=== PATIENT | female | born 1950 | race Caucasian/White ===

== ENCOUNTER → 2023-07-31 10:07 | Outpatient (REF) | payer MEDICARE, SELFPAY ==
[2023-07-31 13:18] LABS: ALT (SGPT) 61 U/L (0-35); AST (SGOT) 68 U/L (14-36); Albumin 3.8 g/dl (3.5-5.0); Alkaline Phosphatase 155 U/L (38-126); Blood Urea Nitrogen 25 mg/dl (7-17); Calcium 11.1 mg/dl (8.4-10.2); Carbon Dioxide 29 mmol/L (22-30); Chloride 104 mmol/L (98-107); Glucose 197 mg/dl (70-99); HDL Cholesterol 60 mg/dl; LDL Cholesterol, Calculated 76 mg/dl; Potassium 4.6 mmol/L (3.5-5.1); Sodium 138 mmol/L (135-145); Total Bilirubin 0.5 mg/dl (0.2-1.3); Total Cholesterol 162 mg/dl (50-199); Total Protein 6.7 g/dl (6.3-8.2); Triglyceride 134 mg/dl (10-149); Very Low Density Lipoprotein 26 mg/dl (0-30); eGFR 53.72
[2023-07-31 14:37] LABS: Glycohemoglobin (HgbA1c) 7.9 % (4.0-5.6)
== END ==
LOC: HWLAB 10:07
PROVIDERS: ATTENDING PHYSICIAN Internal Medicine Endocrinology, Diabetes & Metabolism; FAMILY PHYSICIAN Internal Medicine
DX: E78.5 Hyperlipidemia, unspecified (principal); E11.9 Type 2 diabetes mellitus without complications
CPT/HCPCS: 36415; 80053; 80061; 83036

== ENCOUNTER → 2023-09-05 10:52 | Outpatient (REF) | payer MEDICARE, SELFPAY | LOC: WDC 10:52 | PROVIDERS: ATTENDING PHYSICIAN Internal Medicine | DX: Z12.31 Encounter for screening mammogram for malignant neoplasm of breast (principal) | CPT/HCPCS: 77063; 77067 ==

== ENCOUNTER → 2023-11-13 10:07 | Outpatient (REF) | payer MEDICARE, SELFPAY | LOC: HWRCS 10:07 | PROVIDERS: ATTENDING PHYSICIAN Nurse Practitioner Gerontology; FAMILY PHYSICIAN Internal Medicine | DX: I25.10 Atherosclerotic heart disease of native coronary artery without angina pectoris (principal); I77.810 Thoracic aortic ectasia | CPT/HCPCS: 93306 ==

== ENCOUNTER → 2024-01-23 09:19 | Outpatient (REF) | payer MEDICARE, SELFPAY ==
[2024-01-23 12:21] LABS: ALT (SGPT) 34 U/L (0-35); AST (SGOT) 40 U/L (14-36); Albumin 3.6 g/dl (3.5-5.0); Alkaline Phosphatase 103 U/L (38-126); Blood Urea Nitrogen 28 mg/dl (7-17); Calcium 11.2 mg/dl (8.4-10.2); Carbon Dioxide 36 mmol/L (22-30); Chloride 99 mmol/L (98-107); Glucose 154 mg/dl (70-99); HDL Cholesterol 60 mg/dl; LDL Cholesterol, Calculated 41 mg/dl; Potassium 4.4 mmol/L (3.5-5.1); Sodium 140 mmol/L (135-145); Total Bilirubin 0.3 mg/dl (0.2-1.3); Total Cholesterol 113 mg/dl (50-199); Total Protein 6.3 g/dl (6.3-8.2); Triglyceride 63 mg/dl (10-149); Very Low Density Lipoprotein 12 mg/dl (0-30); eGFR 53.39
[2024-01-23 12:51] LABS: TSH 2.55 uIU/ml (0.47-4.68)
[2024-01-24 09:01] LABS: Intact PTH 128.6 pg/ml (13.6-85.8)
== END ==
LOC: HWLAB 09:19
PROVIDERS: ATTENDING PHYSICIAN Internal Medicine Endocrinology, Diabetes & Metabolism; FAMILY PHYSICIAN Internal Medicine; REFERRING PHYSICIAN Nurse Practitioner Gerontology
DX: E11.9 Type 2 diabetes mellitus without complications (principal); E27.40 Unspecified adrenocortical insufficiency; E21.0 Primary hyperparathyroidism; E78.5 Hyperlipidemia, unspecified
CPT/HCPCS: 36415; 80053; 80061; 83036; 83970; 84443

== ENCOUNTER → 2024-03-22 14:51 | Outpatient (REF) | payer MEDICARE, SELFPAY | LOC: HWRAD 14:51 | PROVIDERS: ATTENDING PHYSICIAN Internal Medicine | DX: C64.9 Malignant neoplasm of unspecified kidney, except renal pelvis (principal); M25.561 Pain in right knee; M25.562 Pain in left knee; M25.551 Pain in right hip; M25.552 Pain in left hip; Z91.81 History of falling | CPT/HCPCS: 73523; 73564 ==

== ENCOUNTER → 2024-06-30 11:18 | Outpatient (REF) | payer MEDICARE, SELFPAY ==
[2024-06-30 13:11] LABS: ALT (SGPT) 45 U/L (0-35); AST (SGOT) 50 U/L (14-36); Albumin 3.9 g/dl (3.5-5.0); Alkaline Phosphatase 73 U/L (38-126); Blood Urea Nitrogen 24 mg/dl (7-17); Calcium 11.3 mg/dl (8.4-10.2); Carbon Dioxide 33 mmol/L (22-30); Chloride 103 mmol/L (98-107); Glucose 154 mg/dl (70-99); HDL Cholesterol 55 mg/dl; LDL Cholesterol, Calculated 50 mg/dl; Potassium 4.4 mmol/L (3.5-5.1); Sodium 140 mmol/L (135-145); Total Bilirubin 0.5 mg/dl (0.2-1.3); Total Cholesterol 122 mg/dl (50-199); Total Protein 6.7 g/dl (6.3-8.2); Triglyceride 88 mg/dl (10-149); Very Low Density Lipoprotein 17 mg/dl (0-30); eGFR > 60.00
[2024-06-30 13:27] LABS: Glycohemoglobin (HgbA1c) 7.8 % (4.0-5.6)
[2024-06-30 13:40] LABS: TSH 1.71 uIU/ml (0.47-4.68)
[2024-06-30 13:44] LABS: Intact PTH 232.5 pg/ml (13.6-85.8)
== END ==
LOC: HWLAB 11:18
PROVIDERS: ATTENDING PHYSICIAN Internal Medicine Endocrinology, Diabetes & Metabolism; FAMILY PHYSICIAN Internal Medicine
DX: E11.9 Type 2 diabetes mellitus without complications (principal); E27.40 Unspecified adrenocortical insufficiency; E21.0 Primary hyperparathyroidism; E78.5 Hyperlipidemia, unspecified
CPT/HCPCS: 36415; 80053; 80061; 83036; 83970; 84443